=== PATIENT | female | born 1975 | race Caucasian/White ===

== ENCOUNTER → 2016-05-23 | Outpatient (CLI) | payer BC ==
--- NOTE | 2016-05-23 23:45 | MR ---
EXAMINATION TYPE: MR shoulder RT wo con DATE OF EXAM: 05/23/2016 7:21 PM COMPARISON: NONE HISTORY: Restricted movement for one year TECHNIQUE: Multiplanar, multisequence imaging of the right shoulder is performed without contrast. FINDINGS: There is a small shoulder joint effusion. There is thickening of the subscapularis tendon with increa sed signal near the insertion on the humeral head. The biceps tendon appears intact. There is some narrowing of the subacromial joint space. There is abnormal increased signal in the sup raspinatus tendon near the greater tuberosity of the humerus. There is no retraction. The glenoid lab ra appear intact. There is no evidence of a fracture. IMPRESSION: There is subacromial impingement with full-thickness vertical tear of the supraspinatus tendon near t he greater tuberosity of the humerus. There is some thickening and increased signal in the subscapula ris tendon consistent with tendinitis. There is a 10 mm area of decreased signal in the subacromial j oint space consistent with severe calcific tendinitis. Small joint effusion.
== END | disposition home or self-care (01) ==
LOC: RADMRIMAIN 18:36
PROVIDERS: ATTEND Orthopaedic Surgery
DX: M75.31 Calcific tendinitis of right shoulder (principal); M25.411 Effusion, right shoulder

== ENCOUNTER → 2016-07-04 | Outpatient (CLI) | payer BC ==
[2016-07-04 10:46] LABS: Basophils % (A) 1 %; CHCM 35.2; Eosinophils # (A) 0.1 k/uL (0-0.7); Eosinophils % (A) 1 %; HCT 42.8 % (34.0-46.0); HDW 2.54; HGB 14.7 gm/dL (11.4-16.0); Luc # (Auto) 0.12; Luc % (Auto) 2; Lymphocytes # (A) 2.6 k/uL (1.0-4.8); Lymphocytes % (A) 31 %; MCH 31.2 pg (25.0-35.0); MCHC 34.3 g/dL (31.0-37.0); MCV 91.2 fL (80.0-100.0); Mean Platelet Volume 6.5; Monocytes # (A) 0.5 k/uL (0-1.0); Monocytes % (A) 6 %; Neutrophils % (A) 60 %; RBC 4.69 m/uL (3.80-5.40); RDW 12.7 % (11.5-15.5); WBC 8.4 k/uL (3.8-10.6); WBC (Perox) 8.38
[2016-07-04 11:04] LABS: Potassium 4.6 mmol/L (3.5-5.1)
== END | disposition home or self-care (01) ==
LOC: LABPAT 10:20
PROVIDERS: ATTEND Orthopaedic Surgery
DX: Z01.812 Encounter for preprocedural laboratory examination (principal); M75.41 Impingement syndrome of right shoulder
CPT/HCPCS: 80051; 85025

== ENCOUNTER 2016-07-19 05:56 | Day surgery (SDC) | payer BC ==
[2016-07-13 10:49] VITALS: BMI 35.4
--- NOTE | 2016-07-18 15:19 | HP ---
DATE OF ADMISSION: 07/19/2016 Nida Alberts is a 41-year-old patient, seen with progressive right shoulder pain. After having options regarding treatment discussed, she elected to proceed with right shoulder arthroscopy. Consent was obtained. Past medical history is hypothyroidism. Past surgical history is noncontributory. DAILY MEDICATIONS: 1. Thyroid. 2. Ibuprofen. ALLERGIES: BACTRIM. SOCIAL HISTORY: Patient denies tobacco use. Physical evaluation of the right shoulder: Flexion is 160 degrees, abduction 150 degrees, external rotation is 45 degrees with some pain and weakness. Tenderness anterolateral rotator cuff area and anterior and lateral acromial area. Impingement +90 degrees. Her distal neurovascular exam is intact. Right shoulder radiographs revealed cystic changes of the tuberosity as well as lateral downsloping anterior acromion. An MRI of the right shoulder revealed a rotator cuff tear as well as impingement. IMPRESSION: Right shoulder impingement with rotator cuff tear. PLAN: Right shoulder arthroscopy with subacromial decompression, possible arthroscopic rotator cuff repair, and debridement.
[~2016-07-19 05:56] MED LIST: DEXAMETHASONE SOD PHOSPHATE 10 MG/ML 1 ML VIAL IV ONE; HYDROmorphone 1 MG/ML 1 ML SYRINGE IVP PRN; LACTATED RINGERS 1,000 ML IV SCH; LIDOCAINE 1% 20 ML VIAL (10MG/ML) FOR IV START INTRADERMA PRN; MIDAZOLAM 2 MG/2 ML VIAL IV PRN; ONDANSETRON 4 MG/2 ML VIAL IVP ONE; SCOPOLAMINE 1.5MG/72HR PATCH TRANSDERM ONE; ceFAZolin 2 GM in SODIUM CHLORIDE 0.9% 100 ML IVPB ONE; fentaNYL (PF) 50 MCG/ML 20 ML VIAL IVP PRN
[2016-07-19] MEDS ORDERED: ROPIVACAINE 5 MG/ML 30 ML VIAL ONE (07:31)
[2016-07-19] MEDS ORDERED: SUCCINYLCHOLINE CHLORIDE 100 MG/5 ML SYR IV ONE (07:31)
[2016-07-19] MEDS ORDERED: LIDOCAINE 2%-EPI 1:100,000 20 ML VIAL ONE (07:31)
[2016-07-19] MEDS ORDERED: PROPOFOL 10 MG/ML 20 ML VIAL IV ONE (07:31)
[2016-07-19] MEDS ORDERED: fentaNYL (PF) 50 MCG/ML 2 ML AMP ONE (07:31)
[2016-07-19] MEDS ORDERED: LIDOCAINE 1% INJ 10MG/ML (20 ML MDV) ONE (07:31)
[2016-07-19] MEDS ORDERED: NEOSTIGMINE 1 MG/ML 10 ML VIAL ONE (07:31)
[2016-07-19] MEDS ORDERED: GLYCOPYRROLATE 0.2 MG/ML 2 ML VIAL ONE (07:31)
[2016-07-19] MEDS ORDERED: ROCURONIUM BROMIDE 10 MG/ML 10 ML VIAL IV ONE (07:31)
[2016-07-19 08:59] VITALS: TEMP 97.2
--- NOTE | 2016-07-19 09:04 | P.OP ---
Date of Procedure: 07/19/16 Preoperative Diagnosis: Right shoulder impingement Postoperative Diagnosis: 1. Right shoulder impingement 2. Right shoulder partial rotator cuff tear 3. Right shoulder superficial labral tear Procedure(s) Performed: 1. Right shoulder arthroscopic subacromial decompression 2. Right shoulder arthroscopic debridement partial rotator cuff tear 3. Right shoulder arthroscopic debridement labral tear Implants: None Anesthesia: RANJIT regional Surgeon: Vikas Ambrocio Estimated Blood Loss (ml): 10 Pathology: none sent Condition: stable Disposition: PACU Indications for Procedure: 41-year-old patient seen with progressive right shoulder pain. After having treatment options discussed, she elected to proceed with right shoulder arthroscopy. Operative Findings: see description of procedure Description of Procedure: Patient underwent a shoulder block by department of anesthesia. The patient was then taken to the operative suite. The patient underwent a general anesthetic by the department of anesthesia. The patient was placed into a lateral position and secured. There was appropriate padding of the bony prominence. Right shoulder was then prepped and draped in normal sterile orthopedic fashion. We placed the extremity in 10 pounds of longitudinal traction. A posterior incision was now made for a posterior working portal site. The trocar and cannula were inserted into the glenohumeral joint. Arthroscopy was initiated. Spinal needle was now inserted anteriorly, to ascertain the anterior working portal site. An incision was now made in that area, a trocar was inserted followed by a probe. There was superficial tearing of the anterior labrum. There were grade 2 chondromalacia changes of the central portion of the glenoid fossa with no osteochondral tears present. The superior posterior and inferior labrum were intact. The biceps appeared unremarkable. There was no obvious rotator cuff tear visualized from glenohumeral side. I debrided the labral tear down to stable tissue. The residual labrum was found to be stable. Instruments were now removed from the glenohumeral joint. Utilizing the posterior working portal site, the trocar and cannula were inserted into the subacromial space. Arthroscopy initiated. I made an incision 2 fingerbreadths lateral to the acromion. I introduced my trocar followed by my [employer]thro[employer] ablator. I now began ablating thick subacromial bursal tissue, which exposed the undersurface of the anterior acromion. This was diminished subacromial space. There was a very prominent anterior acromion. A motorized bur was introduced and a subacromial decompression was performed. I also excised some osteophytes off the inferior aspect of the distal clavicle. The AC joint was visualized and noted to have mild to moderate osteoarthritis. I did not think a Myles procedure was indicated. I turned my attention to the rotator cuff tendon. There was some superficial tearing of the distal and midportion of the supraspinatus. I debrided that down to stable tissue. The residual rotator cuff tendon appeared stable. I do not appreciate perforations. I injected 1 mL of Allergan into the area of debridement as well as intra-articular. Instruments now removed from the portal sites. All portal sites were approximated with nylon suture. Sterile dressings were applied followed by a shoulder immobilizer. The patient was awakened, transferred to a bed, and taken to recovery in stable condition.
[2016-07-19 09:40] VITALS: RESP 16
[2016-07-19 10:03] VITALS: BP 116/67
[2016-07-19 10:38] VITALS: PULSE 85
== END 2016-07-19 10:31 | disposition home or self-care (01) ==
LOC: OR 05:56
PROVIDERS: ATTEND Orthopaedic Surgery
DX: M75.111 Incomplete rotator cuff tear or rupture of right shoulder, not specified as traumatic (principal); M75.41 Impingement syndrome of right shoulder; S43.491A Other sprain of right shoulder joint, initial encounter; M94.211 Chondromalacia, right shoulder; M25.711 Osteophyte, right shoulder; M19.011 Primary osteoarthritis, right shoulder; E03.9 Hypothyroidism, unspecified; X58.XXXA Exposure to other specified factors, initial encounter; Z88.2 Allergy status to sulfonamides; Z79.899 Other long term (current) drug therapy; Z79.1 Long term (current) use of non-steroidal anti-inflammatories (NSAID)
CPT/HCPCS: 64415; 81025; 29823; C1765; J2250; J1100; J2710; J0690; J2405; J2001; J3010; J2795; J0330; J2704

== ENCOUNTER → 2024-03-16 | Outpatient (CLI) | payer BC ==
--- NOTE | 2024-03-16 10:05 | MM ---
Reason for Exam: Screening (asymptomatic). Last mammogram was performed 1 year(s) and 11 month(s) ago. Patient History: Menarche at age 11. First Full-Term at age 24. Premenopausal. Patient used Hormonal Contraceptives for 3 years. Currently using Estrogen and Progesterone, starting at age 48. Risk Values: Geri 5 year model risk: 0.9%. NCI Lifetime model risk: 9.1%. Prior Study Comparison: 04/04/2022 Bilateral MG screening mammo w CAD, [facility]. 04/11/2022 Right MG work up mamm w CAD RT, [facility]. Tissue Density: There are scattered areas of fibroglandular density. Findings: Analyzed By CAD. Right breast: There is no suspicious group of microcalcifications or new suspicious mass. Left breast: There is no suspicious group of microcalcifications or new suspicious mass. Overall Assessment: Negative, BI-RAD 1 Management: Screening Mammogram of both breasts in [address] [facility] will attempt to contact patient to return for supplemental views and ultrasound if indicated. Patient should continue monthly self-breast exams. A clinical breast exam by your physician is recommended on an annual basis. This exam should not preclude additional follow-up of suspicious palpable abnormalities. Note on Geri scores and lifetime risk: 1. A Geri score greater than 3% is considered moderate risk. If this is the case, consider specialist referral to assess eligibility for a risk reducing agent. 2. If overall lifetime risk for the development of breast cancer is 20% or higher, the patient may qualify for future screening with alternating mammogram and breast MRI. [facility], , 03/16/2024 10:00 AM. Electronically signed and approved by: Travis Allison DO
== END | disposition home or self-care (01) ==
LOC: RADMAMWWP 08:45
PROVIDERS: ATTEND Family Medicine
DX: Z12.31 Encounter for screening mammogram for malignant neoplasm of breast (principal); R92.323 Mammographic fibroglandular density, bilateral breasts
CPT/HCPCS: 77067